=== PATIENT | male | born 1990 | race Caucasian/White ===

== ENCOUNTER 2023-09-05 15:08 | Observation (INO) | payer OTHER ==
[2023-09-05] VITALS (11 sets, daily range): BP systolic 84–113; BP diastolic 38–68
[~2023-09-05] VITALS: Ht 170.2 cm; Wt 70.1 kg
[2023-09-05 15:50] LABS: BASOPHILS 0.4 % (0-2); EOSINOPHILS 0.2 % (0-6); HEMOGLOBIN 12.4 g/dL (12.0-18.0); LYMPHOCYTES 10.2 % (24-44); MCH 31.1 (27-36); MCHC 35.4 g/dl (30-36); MCV 87.9 fl (81-99); MONOCYTES 5.6 % (0-12); NEUTROPHILS 83.6 % (39-80); PLATELET COUNT 211 K/uL (140-440); RBC 3.99 M/ul (4.3-5.7); RDW 12.5 (10.5-15.0)
[2023-09-05 16:06] LABS: ACETAMINOPHEN 0 ug/mL (10-30); ALBUMIN/GLOBULIN RATIO 1.48 (1.1-2.4); ALCOHOL, MEDICAL <3 ng/dL (<3); ALKALINE PHOSPHATASE 48 U/L (46-116); ALT (SGPT) 29 U/L (14-59); AST (SGOT) 19 U/L (15-37); BILIRUBIN, TOTAL 0.6 ng/dL (0.2-1.0); BUN/CREATININE RATIO 12.63 (6.0-28.6); CALCIUM 9.9 mg/dL (8.5-10.1); CARBON DIOXIDE 27 mmol/L (21-32); CHLORIDE 100 mmol/L (98-107); CREATININE, SERUM 0.95 mg/dL (0.70-1.30); GLOMERULAR FILTRATION RATE,EST 108 mL/min (>60); MAGNESIUM 1.4 mg/dL (1.8-2.4); PROTEIN, TOTAL 6.7 g/dL (6.4-8.2); SALICYLATE <0.2 mg/dL (2.8-20.0); UREA NITROGEN 12 mg/dL (7-18)
[2023-09-05 16:08] LABS: BILIRUBIN, URINE NEGATIVE (negative); BLOOD/HGB, URINE NEGATIVE (Negative); KETONE, URINE TRACE (Negative); LEUK ESTERASE, URINE NEGATIVE (negative); NITRITE, URINE NEGATIVE (negative)
[2023-09-05 16:20] LABS: AMPHETAMINES, URINE NEGATIVE (NEGATIVE); BARBITURATES, URINE NEGATIVE (NEGATIVE); BENZODIAZEPINE, URINE NEGATIVE (NEGATIVE); BUPRENORPHINE, URINE POSITIVE (NEGATIVE); CANNABINOID, URINE NEGATIVE (NEGATIVE); COCAINE, URINE NEGATIVE (NEGATIVE); ECSTASY, URINE NEGATIVE (NEGATIVE); FENTANYL, URINE NEGATIVE (NEGATIVE); METHADONE, URINE NEGATIVE (NEGATIVE); OPIATES, URINE NEGATIVE (NEGATIVE); OXYCODONE, URINE NEGATIVE (NEGATIVE); PHENCYCLIDINE, URINE NEGATIVE (NEGATIVE)
[2023-09-05] MEDS ORDERED: STRATTERA18 MG PO (16:33)
[2023-09-05] MEDS ORDERED: PROSCAR5 MG PO (16:34)
[2023-09-05] MEDS ORDERED: VENTOLIN HFA18 GM INH (16:35)
[2023-09-05] MEDS ORDERED: TRAZODONE HCL100 MG PO (16:35)
[2023-09-05] MEDS ORDERED: HYDROCHLOROTHIA25 MG PO (16:36)
[2023-09-05] MEDS ORDERED: DOCUSATE SODIU250 MG PO (16:36)
[2023-09-05] MEDS ORDERED: ASMANEX HFA13 G1 IH (16:36)
[2023-09-05] MEDS ORDERED: LISINOPRIL20 MG PO (16:37)
[2023-09-05] MEDS ORDERED: CLARITIN10 MG PO (16:37)
[2023-09-05] MEDS ORDERED: TRIAMCINOLONE A15 G1 TOP (16:38)
[2023-09-05 16:49] LABS: INFLUENZA B NAA NEGATIVE (NEGATIVE); RESPIRATORY SYNCYTIAL VIR NAA NEGATIVE (NEGATIVE)
[2023-09-05] MEDS ORDERED: MELATONIN3 MG PO (20:47)
[2023-09-05] MEDS ORDERED: K-TAB10 MEQ PO (20:49)
[2023-09-05] MEDS ORDERED: MINIPRESS2 MG PO (20:50)
[2023-09-05 21:16] LABS: ANION GAP 13.7 (7-21); BUN/CREATININE RATIO 12.35 (6.0-28.6); CALCIUM 8.7 mg/dL (8.5-10.1); CREATININE, SERUM 0.89 mg/dL (0.70-1.30); POTASSIUM 3.7 mmol/L (3.5-5.1)
--- NOTE | 2023-09-05 22:29 | EKG ---
[facility] [address] [facility] [place] [address] Signed Normal sinus rhythm with sinus arrhythmia Rightward axis Borderline ECG No previous ECGs available Confirmed by Yadiel Conrad MD () on 09/05/2023 10:29:26 PM Electronically Signed By: YADIEL CONRAD MD 09/05/232228 PATIENT NAME: DANA DEVRIES Electrocardiogram DATE OF : [birth year] PHYSICIAN: YADIEL CONRAD MD REPORT #: [id number] REPORT IS CONFIDENTIAL AND NOT TO BE RELEASED WITHOUT AUTHORIZATION
[2023-09-06] VITALS (39 sets, daily range): BP systolic 10–134; BP diastolic 41–90
[2023-09-06 05:28] LABS: EOSINOPHILS 1.8 % (0-6); HEMATOCRIT 35.8 % (35.0-50.0); HEMOGLOBIN 12.1 g/dL (12.0-18.0); LYMPHOCYTES 24.7 % (24-44); MCH 30.5 (27-36); MCHC 33.7 g/dl (30-36); MCV 90.4 fl (81-99); MONOCYTES 9.2 % (0-12); NEUTROPHILS 63.3 % (39-80); PLATELET COUNT 217 K/uL (140-440); RBC 3.96 M/ul (4.3-5.7); RDW 13.1 (10.5-15.0)
[2023-09-06 05:46] LABS: ALBUMIN 3.6 g/dL (3.4-5.0); ALBUMIN/GLOBULIN RATIO 1.29 (1.1-2.4); ANION GAP 11.8 (7-21); BILIRUBIN, TOTAL 0.4 ng/dL (0.2-1.0); BUN/CREATININE RATIO 10.89 (6.0-28.6); CALCIUM 8.3 mg/dL (8.5-10.1); CREATININE, SERUM 1.01 mg/dL (0.70-1.30); MAGNESIUM 1.9 mg/dL (1.8-2.4); PHOSPHORUS, INORGANIC 3.3 mg/dL (2.5-4.9); POTASSIUM 3.8 mmol/L (3.5-5.1); PROTEIN, TOTAL 6.4 g/dL (6.4-8.2)
--- NOTE | 2023-09-06 21:00 | EKG ---
[facility] [address] [facility] [place] [address] Signed Normal sinus rhythm Rightward axis Borderline ECG When compared with ECG of 05-SEP-2023 15:14, No significant change was found Confirmed by Yadiel Conrad MD () on 09/06/2023 9:00:17 PM Electronically Signed By: YADIEL CONRAD MD 09/06/23 2100 PATIENT NAME: DANA DEVRIES Electrocardiogram DATE OF : [birth year] PHYSICIAN: YADIEL CONRAD MD REPORT #: [id number] REPORT IS CONFIDENTIAL AND NOT TO BE RELEASED WITHOUT AUTHORIZATION
== END 2023-09-06 10:10 | disposition home or self-care (01) ==
LOC: ED 15:08 → EDBD 15:09 → ED 15:09 → CCU 15:10
PROVIDERS: Emergency Medicine; ADMIT Family Medicine; ATTEND Family Medicine
DX: T46.4X2A Poisoning by angiotensin-converting-enzyme inhibitors, intentional self-harm, initial encounter (principal); T44.6X2A Poisoning by alpha-adrenoreceptor antagonists, intentional self-harm, initial encounter; T50.2X2A Poisoning by carbonic-anhydrase inhibitors, benzothiadiazides and other diuretics, intentional self-harm, initial encounter; T50.3X2A Poisoning by electrolytic, caloric and water-balance agents, intentional self-harm, initial encounter; T47.4X2A Poisoning by other laxatives, intentional self-harm, initial encounter; E83.42 Hypomagnesemia; I10 Essential (primary) hypertension; K21.9 Gastro-esophageal reflux disease without esophagitis; Z79.899 Other long term (current) drug therapy; Z20.822 Contact with and (suspected) exposure to COVID-19
CPT/HCPCS: 36415; 80048; 80053; 80307; 81003; 83735; 84100; 85025; 87502; 93005; 93010; C9803; G0480; J2405; J3475; J7030; J7121; U0002

== ENCOUNTER 2024-08-11 11:12 | Emergency (ER) | payer OTHER ==
[~2024-08-11] VITALS: Ht 170.2 cm; Wt 68.5 kg
[~2024-08-11 11:12] MED LIST: ASMANEX HFA13 G1 IH; CLARITIN10 MG PO; DOCUSATE SODIU250 MG PO; HYDROCHLOROTHIA25 MG PO; K-TAB10 MEQ PO; LISINOPRIL20 MG PO; MELATONIN3 MG PO; MINIPRESS2 MG PO; PROSCAR5 MG PO; STRATTERA18 MG PO; TRAZODONE HCL100 MG PO; TRIAMCINOLONE A15 G1 TOP; VENTOLIN HFA18 GM INH
[2024-08-11 12:09] LABS: BASOPHILS 0.4 % (0-2); EOSINOPHILS 0.4 % (0-6); HEMATOCRIT 39.1 % (35.0-50.0); HEMOGLOBIN 13.9 g/dL (12.0-18.0); LYMPHOCYTES 13.8 % (24-44); MCH 31.2 (27-36); MCHC 35.5 g/dl (30-36); MCV 87.7 fl (81-99); MONOCYTES 5.1 % (0-12); NEUTROPHILS 80.3 % (39-80); PLATELET COUNT 312 K/uL (140-440); RBC 4.46 M/ul (4.3-5.7); RDW 12.7 (10.5-15.0)
[2024-08-11] MEDS ORDERED: SODIUM CHLORIDE 0.9% 1,000 ML IV ONE (12:15)
[2024-08-11 12:23] LABS: ACETAMINOPHEN 0 ug/mL (10-30); ALBUMIN 4.3 g/dL (3.4-5.0); ALBUMIN/GLOBULIN RATIO 1.23 (1.1-2.4); ALKALINE PHOSPHATASE 64 U/L (46-116); ALT (SGPT) 26 U/L (14-59); ANION GAP 12.3 (7-21); AST (SGOT) 16 U/L (15-37); BILIRUBIN, TOTAL 0.4 ng/dL (0.2-1.0); BUN/CREATININE RATIO 16.36 (6.0-28.6); CALCIUM 9.8 mg/dL (8.5-10.1); CARBON DIOXIDE 30 mmol/L (21-32); CHLORIDE 99 mmol/L (98-107); GLOMERULAR FILTRATION RATE,EST 90 mL/min (>60); POTASSIUM 4.3 mmol/L (3.5-5.1); PROTEIN, TOTAL 7.8 g/dL (6.4-8.2); SALICYLATE 0.8 mg/dL (2.8-20.0); UREA NITROGEN 18 mg/dL (7-18)
[2024-08-11 13:07] LABS: BILIRUBIN, URINE NEGATIVE (negative); BLOOD/HGB, URINE NEGATIVE (Negative); KETONE, URINE TRACE (Negative); LEUK ESTERASE, URINE NEGATIVE (negative); NITRITE, URINE NEGATIVE (negative)
[2024-08-11 13:29] LABS: AMPHETAMINES, URINE NEGATIVE (NEGATIVE); BARBITURATES, URINE NEGATIVE (NEGATIVE); BENZODIAZEPINE, URINE NEGATIVE (NEGATIVE); BUPRENORPHINE, URINE NEGATIVE (NEGATIVE); CANNABINOID, URINE NEGATIVE (NEGATIVE); COCAINE, URINE NEGATIVE (NEGATIVE); ECSTASY, URINE NEGATIVE (NEGATIVE); FENTANYL, URINE NEGATIVE (NEGATIVE); METHADONE, URINE NEGATIVE (NEGATIVE); OPIATES, URINE NEGATIVE (NEGATIVE); OXYCODONE, URINE NEGATIVE (NEGATIVE); PHENCYCLIDINE, URINE NEGATIVE (NEGATIVE)
[2024-08-11 13:50] VITALS: BP 133/89
--- NOTE | 2024-08-13 15:47 | EKG ---
[facility] [address] [facility] [place], [place] [address] Signed Normal sinus rhythm Normal ECG When compared with ECG of 06-SEP-2023 08:47, No significant change was found Confirmed by Alfred Melton MD ([id number]) on 08/13/2024 3:46:51 PM Electronically Signed By: ALFRED MELTON MD 08/13/24 1547 PATIENT NAME: DANA DEVRIES BOUCHRA Electrocardiogram DATE OF : [birth year] PHYSICIAN: ALFRED MELTON MD REPORT #: [id number] REPORT IS CONFIDENTIAL AND NOT TO BE RELEASED WITHOUT AUTHORIZATION
== END 2024-08-11 13:52 | disposition other institution, planned readmission (95) ==
LOC: ED 11:12
PROVIDERS: Emergency Medicine
DX: T43.212A Poisoning by selective serotonin and norepinephrine reuptake inhibitors, intentional self-harm, initial encounter (principal); T46.4X2A Poisoning by angiotensin-converting-enzyme inhibitors, intentional self-harm, initial encounter; T50.992A Poisoning by other drugs, medicaments and biological substances, intentional self-harm, initial encounter; T44.6X2A Poisoning by alpha-adrenoreceptor antagonists, intentional self-harm, initial encounter; T50.2X2A Poisoning by carbonic-anhydrase inhibitors, benzothiadiazides and other diuretics, intentional self-harm, initial encounter; I10 Essential (primary) hypertension; Z79.899 Other long term (current) drug therapy
CPT/HCPCS: 36415; 80053; 80307; 81003; 85025; 93005; 93010; 99285; G0480; J7030

== ENCOUNTER 2025-06-05 07:04 | Day surgery (SDC) | payer OTHER ==
[~2025-06-05 07:04] MED LIST changes: +CEFAZOLIN SODIUM 2 GM/20 ML SYR IV SCH; +HEParin SOD (PORCINE) 5,000 UNIT/ML SDV SUB-Q SCH; +IBLOOD GLUCOSE TEST STRIP 1 EA TEST VI PRN; +LACTATED RINGER'S 1,000 ML IV SCH; +LIDOCAINE HCL 1% 5 ML SDV INJ ONE
[2025-06-05 07:20] VITALS: BP 122/70
[2025-06-05] MEDS ORDERED: ACID CONTROLLER20 MG PO (07:26)
[2025-06-05] MEDS ORDERED: DULCOLAX5 MG PO (07:26)
[2025-06-05] MEDS ORDERED: CONSTULOSE10 GM/15 M PO (07:27)
[2025-06-05] MEDS ORDERED: MIRTAZAPINE15 MG PO (07:28)
[2025-06-05] MEDS ORDERED: CORTISONE60 GM TOP (07:29)
[2025-06-05] MEDS ORDERED: OMEPRAZOLE20 MG PO (07:31)
[2025-06-05] MEDS ORDERED: VITAMIN D3100 GM MISC (07:31)
--- NOTE | 2025-06-05 07:34 | NUR ---
PT NOT AVAILABLE FOR VISIT. PROVIDED PRAYER.
[2025-06-05] MEDS ORDERED: fentaNYL citrate 100 MCG/2 ML VIAL ONE (07:37)
[2025-06-05] MEDS ORDERED: MIDAZOLAM HCL 2 MG/2 ML VIAL ONE (07:37)
[2025-06-05] MEDS ORDERED: BUPIVACAINE 0.75% IN DEXTROSE 2 ML AMP ONE (07:38)
[2025-06-05] MEDS ORDERED: DEXAMETHASONE SOD PHOS 4 MG/ML VIAL ONE ×2 (07:48→08:13)
[2025-06-05] MEDS ORDERED: IBUPROFEN600 MG PO (09:25)
[2025-06-05] MEDS ORDERED: ACETAMINOPHEN500 MG PO (09:26)
[2025-06-05] MEDS ORDERED: HYDROCODON-ACE1 EA10 PO (09:26)
[2025-06-05] MEDS ORDERED: ACETAMINOPHEN 500 MG TAB PO PRN (09:30)
[2025-06-05] MEDS ORDERED: HYDROCODONE/ACETA 5/325 TAB PO PRN (09:30)
[2025-06-05] MEDS ORDERED: IBUPROFEN 600 MG TAB PO PRN (09:30)
[2025-06-05] MEDS ORDERED: NALOXONE HCL 0.4 MG SYR IV PRN (09:30)
--- NOTE | 2025-06-05 09:43 | NUR ---
06/05/25 0943 Massiel Locke SNORING RESPIRATIONS HEARD UPON ARRIVAL TO PACU. OXYGEN SATURATION DECREASES TO 91% HOB IS ELEVATED TO 45 DEGREES. PATIENT OPENS HIS EYES AND DENIES PAIN. HE IS RESTING QUIETLY, WITH HIS EYES CLOSED. NO SNORING HEARD. OXYGEN SATURATION INCREASES TO 99% ON RA.
[2025-06-05 10:03] VITALS: BP 105/62
--- NOTE | 2025-06-10 15:42 | PATH ---
[facility] [address] [place], [place] [address] Signed SPECIMEN(S): A RECTAL BIOPSY SPECIMEN(S): B ALDA-ANAL BIOPSY SPECIMEN SOURCE: A. RECTAL BIOPSY B. ALDA-ANAL BIOPSY CLINICAL HISTORY: Chronic posterior anal fissures FINAL PATHOLOGIC DIAGNOSIS: A. Rectal biopsy: - Polypoid fragment of benign colonic mucosa - Negative for dysplastic or hyperplastic changes - Multiple tissue levels were examined B. Perianal skin biopsy: - Inflamed squamous mucosa with hyperkeratosis and parakeratosis and partial crush artifact - See comment COMMENT: Immunohistochemical stains were performed on specimen B. A cytokeratin AE1/AE3 stain is negative for an infiltrating carcinoma pattern and a p16 stain is negative for strong block staining. Clinical correlation is required. BB MICROSCOPIC EXAMINATION: Histologic sections of all submitted blocks are examined by light microscopy. These findings, together with the gross examination, support the pathologic diagnosis. GROSS DESCRIPTION: A. The specimen, labeled and designated "Ambrosio rectal biopsy," is received in formalin and consists of a 0.4 x 0.4 x 0.3 cm dey-lockwood polypoid portion of skin, inked blue, bisected and submitted in cassette A1. B. The specimen, labeled and designated "Ambrosio, perianal skin biopsy," is received in formalin and consists of a 0.6 x 0.3 x 0.1 cm dey-lockwood smooth skin shave. It is inked blue, bisected and submitted in cassette B1. PATIENT NAME: DANA DEVRIES PATHOLOGY DATE OF : [birth year] REPORT #: [id number] PHYSICIAN: DYLON DOLAN PCP: ASHLEY VÁZQUEZ REPORT IS CONFIDENTIAL AND NOT TO BE RELEASED WITHOUT AUTHORIZATION [facility] [address] [place], [place] [address] Signed TN (under the direct supervision of a pathologist) The Gross Description was prepared using a voice recognition system. The report was reviewed for accuracy; however, sound-alike word errors, addition and/or deletions may occur. If there is any question about this report, please contact Client Services. ADDITIONAL NOTES: Immunohistochemical and/or in situ hybridization studies if performed in this case included appropriate positive controls that reacted as expected. This test was developed and its performance characteristics determined by [facility]. It has not been cleared or approved by the U.S. Food and Drug Administration. The FDA has determined that such clearance or approval is not necessary. This test is used for clinical purposes. It should not be regarded as investigational or for research. [facility] is certified under the Clinical Laboratory Improvement Amendments of 1988 (CLIA) as qualified to perform high complexity clinical laboratory testing. PERFORMING LABORATORY: Technical preparation was performed by [facility], [address] [place] [address] (CLIA#: [id number]). Professional interpretation was performed by [facility] [address] [address] (CLIA#: [id number]). Diagnostician: Chris Mcneil MD Pathologist Electronically Signed 06/10/2025 Copies: ~ PATIENT NAME: DANA DEVRIES PATHOLOGY DATE OF : [birth year] REPORT #: [id number] PHYSICIAN: DYLON PATHOLOGY PCP: ASHLEY VÁZQUEZ REPORT IS CONFIDENTIAL AND NOT TO BE RELEASED WITHOUT AUTHORIZATION
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
== END 2025-06-05 10:11 | disposition home or self-care (01) ==
LOC: DS 07:04
PROVIDERS: ATTEND Surgery
PROC: 0DBP7ZX Excision of Rectum, Via Natural or Artificial Opening, Diagnostic (ICD-10-PCS; principal; 2025-06-05 08:45)
DX: L85.8 Other specified epidermal thickening (principal); K62.1 Rectal polyp; J45.909 Unspecified asthma, uncomplicated; Z79.899 Other long term (current) drug therapy; Z91.410 Personal history of adult physical and sexual abuse
CPT/HCPCS: 00902; 80053; 85025; J0690; J1100; J1644; J2250; J2405; J2704; J3010; J7121

== ENCOUNTER 2025-06-13 10:36 | Emergency (ER) | payer OTHER ==
[~2025-06-13] VITALS: Ht 170.2 cm; Wt 65.0 kg
[~2025-06-13 10:36] MED LIST changes: +ACETAMINOPHEN500 MG PO; +ACID CONTROLLER20 MG PO; -CEFAZOLIN SODIUM 2 GM/20 ML SYR IV SCH; +CONSTULOSE10 GM/15 M PO; +CORTISONE60 GM TOP; +DULCOLAX5 MG PO; -HEParin SOD (PORCINE) 5,000 UNIT/ML SDV SUB-Q SCH; +HYDROCODON-ACE1 EA10 PO; -IBLOOD GLUCOSE TEST STRIP 1 EA TEST VI PRN; +IBUPROFEN600 MG PO; -LACTATED RINGER'S 1,000 ML IV SCH; -LIDOCAINE HCL 1% 5 ML SDV INJ ONE; +MIRTAZAPINE15 MG PO; +OMEPRAZOLE20 MG PO; +VITAMIN D3100 GM MISC
--- OUTSIDE RECORDS SUMMARY | 2025-06-13 10:43 | XMS ---
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 Rufino has no Care Guidelines for this patient. Yanni VISIT COUNT (12 MO.) [address] [facility] [place] TOTAL 3 NOTE: Visits indicate total known visits. ED/C VISIT TRACKING (12 MO.) 06/13/2025 10:[address] [facility] [place] TYPE: Emergency COMPLAINT: - FOREIGN BODY 06/13/2025 02:03 [facility] [place] TYPE: Emergency COMPLAINT: - HAND LACERATION 08/11/2024 11:13 [facility] [place] TYPE: Emergency COMPLAINT: - MEDICATION OD DIAGNOSES: - Essential (primary) hypertension - Low back pain, unspecified - Other assisted (current) drug therapy - Poisoning by alpha-adrenoreceptor antagonists, intentional self-harm, initial encounter - Poisoning by ahsoohtqraz-rwjlrsejfy-fgmdyq inhibitors, intentional self-harm, initial encounter - Poisoning by carbonic-anhydrase inhibitors, benzothiadiazides and other diuretics, intentional self-harm, initial encounter - Poisoning by other drugs, medicaments and biological substances, intentional self-harm, initial encounter - Poisoning by selective serotonin and norepinephrine reuptake inhibitors, intentional self-harm, initial encounter - Suicidal ideations - Unspecified abdominal pain INPATIENT VISIT TRACKING (12 MO.) No inpatient visits to display in this time frame [email or web address]
[2025-06-13 11:20] LABS: BASOPHILS 0.3 % (0.2-1.2); EOSINOPHILS 0.1 % (0.8-7.0); LYMPHOCYTES 16.5 % (21.8-53.1); MCH 30.2 PG (25.7-32.2); MCHC 34.4 g/dL (32.3-36.5); MCV 87.9 fL (79.0-92.2); MONOCYTES 5.1 % (5.3-12.2); NEUTROPHILS 77.6 % (34.0-67.9); RBC 4.37 M/uL (4.63-6.08)
[2025-06-13 11:36] LABS: ALT (SGPT) 36.0 U/L (14-59); AST (SGOT) 19.0 U/L (15-37); GLOMERULAR FILTRATION RATE,EST 123.0 mL/min (>60); PROTEIN, TOTAL 7.2 g/dL (6.4-8.2); UREA NITROGEN 14.0 mg/dL (7-18)
[2025-06-13 11:40] VITALS: BP 125/77
== END 2025-06-13 14:12 | disposition home or self-care (01) ==
LOC: ED 10:36
PROVIDERS: Emergency Medicine
DX: T18.9XXA Foreign body of alimentary tract, part unspecified, initial encounter (principal); J45.909 Unspecified asthma, uncomplicated; I10 Essential (primary) hypertension; K21.9 Gastro-esophageal reflux disease without esophagitis; Z91.51 Personal history of suicidal behavior; Z79.899 Other long term (current) drug therapy; W44.H0XA Other sharp object unspecified, entering into or through a natural orifice, initial encounter
CPT/HCPCS: 36415; 71045; 74018; 74177; 80053; 85025; 99284-25; Q9967

== ENCOUNTER 2025-08-15 11:12 | Emergency (ER) | payer OTHER ==
[~2025-08-15] VITALS: Ht 170.2 cm; Wt 69.0 kg
[2025-08-15 11:26] LABS: BASOPHILS 0.5 % (0.2-1.2); EOSINOPHILS 0.4 % (0.8-7.0); LYMPHOCYTES 15.6 % (21.8-53.1); MCH 29.8 PG (25.7-32.2); MCHC 33.9 g/dL (32.3-36.5); MCV 87.7 fL (79.0-92.2); MONOCYTES 4.5 % (5.3-12.2); NEUTROPHILS 78.8 % (34.0-67.9); RBC 5.04 M/uL (4.63-6.08)
[2025-08-15] MEDS ORDERED: SODIUM CHLORIDE 0.9% 1,000 ML IV ONE (11:30)
[2025-08-15 11:41] LABS: ALT (SGPT) 29 U/L (14-59); AST (SGOT) 24 U/L (15-37); GLOMERULAR FILTRATION RATE,EST 119 mL/min (>60); PROTEIN, TOTAL 8.0 g/dL (6.4-8.2); UREA NITROGEN 11 mg/dL (7-18)
[2025-08-15 11:50] LABS: AMPHETAMINES, URINE NEGATIVE (NEGATIVE); BARBITURATES, URINE NEGATIVE (NEGATIVE); BENZODIAZEPINE, URINE NEGATIVE (NEGATIVE); CANNABINOID, URINE NEGATIVE (NEGATIVE); COCAINE, URINE NEGATIVE (NEGATIVE); ECSTASY, URINE NEGATIVE (NEGATIVE); FENTANYL, URINE NEGATIVE (NEGATIVE); METHADONE, URINE NEGATIVE (NEGATIVE); OPIATES, URINE NEGATIVE (NEGATIVE); OXYCODONE, URINE NEGATIVE (NEGATIVE); PHENCYCLIDINE, URINE NEGATIVE (NEGATIVE)
[2025-08-15 14:20] LABS: GLOMERULAR FILTRATION RATE,EST 117.0 mL/min (>60); UREA NITROGEN 10.0 mg/dL (7-18)
[2025-08-15 17:26] LABS: GLOMERULAR FILTRATION RATE,EST 95.0 mL/min (>60); UREA NITROGEN 11.0 mg/dL (7-18)
[2025-08-15 18:17] VITALS: BP 112/63
--- NOTE | 2025-08-17 13:45 | EKG ---
[facility] [address] [facility] [place] [address] Signed Normal sinus rhythm Normal ECG When compared with ECG of 11-AUG-2024 12:27, No significant change was found Confirmed by Leroy Stevens DO ([id number]) on 08/17/2025 1:45:34 PM Electronically Signed By: LEROY STEVENS DO 08/17/25 1345 PATIENT NAME: CHARLYSHEYDANA Electrocardiogram DATE OF : 88 PHYSICIAN: LEROY STEVENS DO REPORT #: [id number] REPORT IS CONFIDENTIAL AND NOT TO BE RELEASED WITHOUT AUTHORIZATION
== END 2025-08-15 18:15 | disposition home or self-care (01) ==
LOC: ED 11:12
PROVIDERS: Emergency Medicine
DX: T46.4X2A Poisoning by angiotensin-converting-enzyme inhibitors, intentional self-harm, initial encounter (principal); T47.1X2A Poisoning by other antacids and anti-gastric-secretion drugs, intentional self-harm, initial encounter; T47.0X2A Poisoning by histamine H2-receptor blockers, intentional self-harm, initial encounter; T45.2X2A Poisoning by vitamins, intentional self-harm, initial encounter; T47.4X2A Poisoning by other laxatives, intentional self-harm, initial encounter; T50.3X2A Poisoning by electrolytic, caloric and water-balance agents, intentional self-harm, initial encounter; R11.0 Nausea; I10 Essential (primary) hypertension; J45.909 Unspecified asthma, uncomplicated; Z79.899 Other long term (current) drug therapy
CPT/HCPCS: 36415; 80048; 80053; 80307; 85025; 93005; 93010; 96374; 99285-25; G0480; J2405; J7030

== ENCOUNTER 2025-08-19 13:24 | Emergency (ER) | payer OTHER ==
[~2025-08-19] VITALS: Ht 170.2 cm; Wt 65.0 kg
--- OUTSIDE RECORDS SUMMARY | 2025-08-19 13:30 | XMS ---
PreManage Notification: DANA DEVRIES Security Bilingual Nanny Events No recent Security Events currently on file CRITERIA MET - [facility] - 2 Visits in 30 Days CARE PROVIDERS There are no care providers on record at this time. Rufino has no Care Guidelines for this patient. Yanni VISIT COUNT (12 MO.) 4 [facility] [place] [facility] TOTAL 4 NOTE: Visits indicate total known visits. [place] [place] (12 MO.) 08/19/2025 13:[address] [facility] [place] TYPE: Emergency COMPLAINT: - SWALLOWED FOREIGN OBJECT 08/15/2025 11:12 [facility] [place] TYPE: Emergency COMPLAINT: - OD DIAGNOSES: - Essential (primary) hypertension - Nausea - Other residential (current) drug therapy - Poisoning by lvrkvcwojri-duxhtxsvuo-aqbwuc inhibitors, intentional self-harm, initial encounter - Poisoning by electrolytic, caloric and water-balance agents, intentional self-harm, initial encounter - Poisoning by histamine H2-receptor blockers, intentional self-harm, initial encounter - Poisoning by multiple unspecified drugs, medicaments and biological substances, intentional self-harm, initial encounter - Poisoning by other antacids and zgbt-elcjvwq-kcjprmgua drugs, intentional self-harm, initial encounter - Poisoning by other laxatives, intentional self-harm, initial encounter - Poisoning by vitamins, intentional self-harm, initial encounter - Unspecified asthma, uncomplicated 06/13/2025 10:37 [facility] [place] TYPE: Emergency COMPLAINT: - FOREIGN BODY DIAGNOSES: - Essential (primary) hypertension - Foreign body of alimentary tract, part unspecified, initial encounter - Gastro-esophageal reflux disease without esophagitis - Other belt picker (current) drug therapy - Other sharp object unspecified, entering into or through a natural orifice, initial encounter - Personal history of suicidal behavior - Unspecified asthma, uncomplicated 06/13/2025 02:03 [facility] [place] TYPE: Emergency COMPLAINT: - HAND LACERATION DIAGNOSES: - Essential (primary) hypertension - Gastro-esophageal reflux disease without esophagitis - Intentional self-harm by other sharp object, initial encounter - Laceration without foreign body of left wrist, initial encounter - Other residential (current) drug therapy - Unspecified asthma, uncomplicated INPATIENT VISIT TRACKING (12 MO.) No inpatient visits to display in this time frame [email or web address]
[2025-08-19 15:00] VITALS: BP 132/78
== END 2025-08-19 15:00 | disposition other institution, planned readmission (95) ==
LOC: ED 13:24
DX: T18.2XXA Foreign body in stomach, initial encounter (principal); I10 Essential (primary) hypertension; G47.00 Insomnia, unspecified; K21.9 Gastro-esophageal reflux disease without esophagitis; J45.909 Unspecified asthma, uncomplicated; W44.A1XA Button battery entering into or through a natural orifice, initial encounter; Z79.899 Other long term (current) drug therapy
CPT/HCPCS: 74018; 99283